=== PATIENT | female | born 1960 | race Caucasian/White ===

== ENCOUNTER 2020-04-10 16:33 | Emergency (ER) | payer OTHER ==
[~2020-04-10] VITALS: Ht 167.6 cm; Wt 102.1 kg
[2020-04-10] MEDS ORDERED: LISINOPRIL20 MG PO (18:36)
[2020-04-10] MEDS ORDERED: SIMVASTATIN20 MG PO (18:37)
[2020-04-10] MEDS ORDERED: METFORMIN HCL500 MG PO (18:37)
[2020-04-10] MEDS ORDERED: METFORMIN HCL1000 MG PO (18:37)
[2020-04-10] MEDS ORDERED: PROPRANOLOL HCL20 MG PO (18:38)
== END 2020-04-10 19:58 | disposition home or self-care (01) ==
LOC: ED 16:33
DX: S93.401A Sprain of unspecified ligament of right ankle, initial encounter (principal); X50.9XXA Other and unspecified overexertion or strenuous movements or postures, initial encounter; E11.9 Type 2 diabetes mellitus without complications; I10 Essential (primary) hypertension; Z88.0 Allergy status to penicillin; Z79.899 Other long term (current) drug therapy; Z79.84 Long term (current) use of oral hypoglycemic drugs
CPT/HCPCS: 73610; 99284-25